=== PATIENT | female | born 1990 | race Caucasian/White ===

== ENCOUNTER 2020-03-14 16:42 | Emergency (ER) | payer OTHER, SELFPAY ==
--- NOTE | 2020-03-14 | XR_ITS ---
EXAMINATION: XR KNEE, LEFT CLINICAL INFORMATION: Injury. COMPARISON: None TECHNIQUE: Four views of the left knee. FINDINGS: No acute fracture or dislocation. No significant joint space narrowing or marginal osteophytes. No osseous erosion. No abnormal soft tissue calcification. Trace joint effusion. XR/XR knee LT 4V IMPRESSION: Trace joint effusion.
[2020-03-14 16:50] VITALS: BP 132/91; PULSE 81; RESP 18; TEMP 36.8; O2SAT 100; BMI 29.5
--- NOTE | 2020-03-14 17:14 | ED.LOWEXIN ---
HPI - Extremity Injury (Lower) General Chief Complaint: Extremity Injury, Lower Stated Complaint: Fall Time Seen by Provider: 03/14/20 16:49 Source: patient Mode of arrival: wheelchair History of Present Illness HPI Narrative: 30-year-old female with no significant past medical history presenting to Emergency Department knee pain. She states she was on a course and lost control and fell. The major the trauma was on her left leg. She felt lightheaded when she stood because of the pain to her knee. She felt her knee shift back and forth. She did hear an initial pop. She denies head injury, LOC. she denies chest wall, abdominal or back injury. No report of incontinence. Related Data Previous Rx's Medication Instructions Recorded ibuprofen 600 mg PO Q6H PRN 7 Days #28 tab 03/14/20 Allergies Allergy/AdvReac Type Severity Reaction Status Date / Time No Known Allergies Allergy Verified 03/14/20 16:53 Review of Systems Constitutional: Constitutional: Denies fever(s) and Denies headache(s) Eyes: Eyes: Reports no additional eye complaints ENT: Denies headache(s) Comments: no oral injury Cardiovascular: Cardiovascular: Denies chest pain, Denies syncope and Denies dyspnea Respiratory: Respiratory: Denies dyspnea Gastrointestinal: Gastrointestinal: Denies abdominal pain and Denies vomiting Genitourinary: Comments: no incontinence Musculoskeletal: Comments: left knee pain Neurologic: Denies syncope and Denies headache(s) Hematologic/Lymphatic: Hematologic/Lymphatic: Denies easy bleeding PMFSH Past Medical History Medical History No known health problems Social History Social History Smoked in Last 30 Days: No Use of substances other than those prescribed or required for medical reasons: No Advance Directives: No Advance Directives Information Provided: No Physical Exam Vital Signs: Vital Signs: Last Vital Signs Temp 98.2 F 03/14/20 16:50 Pulse 81 03/14/20 16:50 Resp 18 03/14/20 16:50 BP 132/91 H 03/14/20 16:50 Pulse Ox 100 03/14/20 16:50 Body Mass Index 29.5 Const: General: cooperative Orientation/consciousness: patient oriented x3 HENMT: Other: no oral injury no julien sign Head: Yes atraumatic Eyes: Pupils: Equal, round and reactive pupils present EOM: EOMs intact bilaterally Neck: Neck: Yes full ROM, Yes trachea midline and Yes supple Chest: Chest palpation & inspection: normal inspection of the chest, normal palpation of entire chest wall, no crepitus and no tenderness Resp: Effort & Inspection: normal respiratory effort Auscultation: clear to auscultation bilaterally Cardio: Rate: regular rate Rhythm: regular rhythm GI: Inspection: No distended Palpation (GI): Soft to palpation and nontender Back/Spine/Pelvis: Other: no midline tenderness of cervical, thoracic or lumbar spine Skin: Other: intact Neuro: General: patient oriented x3 and no focal motor deficits Cranial nerves: Yes Equal, round and reactive pupils present Extrem: Other: LLE_ + pedal pulse, full ROM of digits, ankle, limited ROM of the knee secondary to pain able to fully extend, no calf tenderness or swelling, pelvis stable, no obvious deformities, no lacerations or wounds, no erythema or warmth, compartments soft, neurovasuclarly intact Course Reevaluation(s) Reevaluation #1: Trace joint effusion on plain film most likely due to a ligamentous injury. WIll give ortho follow up, continue with knee immobilizer and crutches. Pt. feels comfortable with this plan. Time: 18:03 MDM - Extremity Injury (Lower) MDM Narrative Medical decision making narrative: 30-year-old female presenting to the emergency department after falling off her horse Vital stable, nontoxic appearing, hemodynamically stable Will plan for plain films of her knee to rule out bony injury. She does not have calf tenderness or swelling to suggest an underlying DVT. She does not have evidence of thoracic or abdominal injury. No midline tenderness to her spine to suggest underlying fracture. She has no red flags for a cord compression. She does not have evidence of a tendon rupture as she is able to passively range her knee although limited. No evidence of compartment syndrome. Upper limbs are atraumatic. She denies hitting her head or LOC, not on anticoagulant [place] Head CT guidelines patient does not warrant head imaging. She denies chance of , due for her menstrual now. Discharge Plan Discharge Clinical Impression: Knee sprain, Joint effusion of knee Patient Disposition: Home, Self-Care Instructions: Knee Sprain (ED), R.I.C.E. Treatment (ED) Additional Instructions: You were seen in the emergency department for knee pain after an injury. YOur xray did not show a broken bone. Please elevate your leg and place ice to help with swelling. Use knee immobilizer when walking and use crutches for weight bearing. Please contact the orthopedic office for further follow up. Return to the emergency department if your symptoms worsen, worsening pain, swelling, calf pain, weakness, numbness, tingling, difficulty walking, or any other concerning symptoms. You may take Tylenol Motrin as directed for pain if needed. Prescriptions: New ibuprofen 600 mg tablet 600 mg PO Q6H PRN (Reason: pain) 7 Days Qty: 28 RF: 0 Referrals: Luis F Benoit MD [Physician] - 1 week
[2020-03-14] MEDS: Ibuprofen 600 MG TABLET PO (17:26)
[2020-03-14] MEDS: oxyCODONE HCl Immed Release 5 MG TABLET PO (17:26)
[2020-03-14] MEDS: Acetaminophen 325 MG TABLET 650 MG PO (17:26)
[2020-03-14 18:00] VITALS: BP 136/92; PULSE 88; RESP 14; TEMP 36.8; O2SAT 100
== END 2020-03-14 19:19 | disposition home or self-care (01) ==
PROVIDERS: Emergency Provider Emergency Medicine
DX: S83.92XA Sprain of unspecified site of left knee, initial encounter (principal); W18.30XA Fall on same level, unspecified, initial encounter; M25.462 Effusion, left knee; Y93.89 Activity, other specified; Y92.019 Unspecified place in single-family (private) house as the place of occurrence of the external cause; Y99.9 Unspecified external cause status
CPT/HCPCS: 73564; 99283; 99284

== ENCOUNTER → 2020-03-20 10:55 | Outpatient (BNVA) | payer OTHER, SELFPAY | PROVIDERS: Visit Provider Orthopaedic Surgery | DX: Z76.89 Persons encountering health services in other specified circumstances (principal) ==

== ENCOUNTER 2020-03-31 13:08 | Outpatient (REF) | payer OTHER, SELFPAY ==
--- NOTE | 2020-03-31 13:11 | MR_ITS ---
EXAMINATION: MR KNEE WITHOUT CONTRAST, LEFT CLINICAL INFORMATION: Left knee effusion. Patient reports fall off horse 3 weeks prior. COMPARISON: X-ray left knee March 2020. TECHNIQUE: MRI of the knee without contrast was performed using routine sequences on a high-field scanner. FINDINGS: MENISCI: Medial Meniscus: Intact. Lateral Meniscus: Intact. LIGAMENTS: Cruciate: There is some discontinuity the proximal anterior cruciate ligament. The appearance is compatible with tear either incomplete versus complete. The may be some fibers still intact. Posterior cruciate ligament intact. Collateral: There is a small focal area of discontinuity at the femoral attachment of the medial collateral ligament compatible with a small incomplete partial tear. See coronal image 11 series 6. There is mild abnormal signal circumferentially about the proximal medial collateral ligament extending to the medial joint line. Distal to the joint line the ligament is intact. Collateral ligaments are intact. EXTENSOR MECHANISM: Intact. ARTICULAR CARTILAGE/BONE: Patellofemoral Compartment: Evaluation is slightly limited by motion artifact. No definite arthrosis. Medial Compartment: Subchondral marrow edema along the posterior aspect of the tibial plateau, compatible with bone contusion. Lateral Compartment: Subchondral marrow edema compatible with bone contusion along the sulcus terminalis along the femoral condyle as well as along the posterior aspect of the lateral plateau. Overlying articular cartilage appears intact. JOINT FLUID AND BURSAE: There is a moderate joint effusion. MR/MR knee LT wo con IMPRESSION: Tear of the anterior cruciate ligament, complete versus incomplete. Given the additional pattern of bone contusions the findings are highly suspicious for complete tear of the anterior cruciate ligament. Partial tear of the proximal medial collateral ligament.
== END 2020-03-31 13:09 | disposition home or self-care (01) ==
LOC: HO.MRI 13:08
PROVIDERS: Visit Provider Orthopaedic Surgery
DX: M25.462 Effusion, left knee (principal)
CPT/HCPCS: 73721

== ENCOUNTER → 2020-04-03 09:12 | Outpatient (BNVA) | payer OTHER, SELFPAY | PROVIDERS: Visit Provider Orthopaedic Surgery ==

== ENCOUNTER 2020-04-22 08:00 | Outpatient (RCR) | payer OTHER, SELFPAY ==
--- NOTE | 2020-04-22 10:02 | MHC.PT.EP ---
[facility] [place] Office [place] Office [place] Office [address] Karolina Sanchez [address] [phone] F: [phone] F: [phone] F: [phone] F: [phone] Physical Therapy Plan of Care Date of Evaluation: 04/22/20 Date of Surgery: Diagnosis: EFFUSION L KNEE Assessment: Pt IS 30 YO F REFERRED TO PT FROM [facility] (DR MOLINA) WITH L KNEE JT EFFUSION. Pt HAD A FALL OFF A HORSE 03/14/20 WITH MRI SHOWING INCOMPLETE VS COMPLETE TEAR L ACL AND PARTIAL TEAR MCL. TO SEE DR GONSALVES NEXT WEEK TO TALK ABOUT SURGERY. DR MOLINA WOULD LIKE TO SEE AND INCREASE IN L KNEE ROM AND STRENGTH PRIOR TO SURGERY. Pt PRESENTS WITH DECREASED L KNEE ROM, DECREASED L LE STRENGTH, SLIGHT SWELLING (REPORTS IMPROVED SINCE INJURY) WITH PAIN. SHOULD BENEFIT FROM PT TO HELP INCREASE L KNEE ROM AND L LE STRENGTH PRIOR TO SURGERY Frequency and Duration: The patient will be seen 1-2X/WK UNTILSURGERY(TO SEE DR GONSALVES ONTUESDAY)FOR NOW WILL SAY [id number]/WKX4WK Short Term Goals: 1. INCREASED AWARENESS KNEE CARE AND PO ACL PROTOCOL 2. INCREASED L KNEE ROM 0-130 3. ABLE TO PERF SLR ON L Detention Goals: 1. I HEP 2. INCREASED STRENGTH L LE 1/2 MM GRADE 3. DECREASED L KNEE PAIN AT LEAST 50% WITH ADLS 4. DECREASED L KNEE SWELLING 14-1/2 INCH WITH Pt REPORT OF LESS SWELLING WITH ADLS Treatment Plan: Modalities to reduce pain, spasms and effusion. Manual therapy to restore motion and function. Therapeutic exercise to improve strength and flexibility. Neuromuscular re-education for posture and balance. Therapeutic activities to return to functional activities of daily living. Electronically signed by: THO CHAUHAN PT Please sign and return to therapist. Thank you for your referral.
--- NOTE | 2020-06-03 07:46 | MHC.PT.DC ---
[facility] [place] Office [place] Office [place] Office [address] Karolina Sanchez [address] [phone] F: [phone] F: [phone] F: [phone] F: [phone] Physical Therapy Discharge Report Diagnosis: EFFUSION L KNEE Date of Surgery: Date of Evaluation: 04/22/20 Date of Discharge: 06/03/20 Treatments to Date: 1 Cancellations to Date: No Shows to Date: Discharge Status: Independent with HEP Discharge Summary: Pt SEEN FOR [facility] ONLY FOR PRE-OP ED/EX. Pt UNDERWENT ACL RECONCTRUCTION ON 05/28/20 AND IS NOW CONTINUING POST OP PT IN THE LITTLE NECK OFFICE. AT [facility] [place]:Pt IS 30 YO F REFERRED TO PT FROM [facility]TH[facility] (DR MOLINA) WITH L KNEE JT EFFUSION. Pt HAD A FALL OFF A HORSE 03/14/20 WITH MRI SHOWING INCOMPLETE VS COMPLETE TEAR L ACL AND PARTIAL TEAR MCL. TO SEE DR GONSALVSE NEXT WEEK TO TALK ABOUT SURGERY. DR MOLINA WOULD LIKE TO SEE AND INCREASE IN L KNEE ROM AND STRENGTH PRIOR TO SURGERY. Pt PRESENTS WITH DECREASED L KNEE ROM, DECREASED L LE STRENGTH, SLIGHT SWELLING (REPORTS IMPROVED SINCE INJURY) WITH PAIN. SHOULD BENEFIT FROM PT TO HELP INCREASE L KNEE ROM AND L LE STRENGTH PRIOR TO SURGERY Electronically signed by: THO CHAUHAN PT Please sign and return to therapist. Thank you for your referral.
== END 2020-06-03 07:48 | disposition other institution (70) ==
LOC: HO.PTWFD 08:00
PROVIDERS: Visit Provider Orthopaedic Surgery
DX: M25.462 Effusion, left knee (principal)
CPT/HCPCS: 97110; 97161

== ENCOUNTER → 2020-04-28 08:30 | Outpatient (BNVA) | payer OTHER, SELFPAY | PROVIDERS: Visit Provider Orthopaedic Surgery ==

== ENCOUNTER 2020-05-28 06:09 | Day surgery (SDC) | payer OTHER, SELFPAY ==
[2020-05-21 11:59] VITALS: BMI 29.5
--- NOTE | 2020-05-26 15:31 | HO.ANESPROP2 ---
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 Mother No problems noted. Social History Social History Are you a primary multi care technician to a significant other at home: No Do you presently have visiting nurse or other home services: No Smoking Status: Unknown if ever smoked Advance Directives: No Advance Directives Information Provided: No Advance Directives on File: No Recently lost weight without trying: No Meds Allergies Allergy/AdvReac Type Severity Reaction Status Date / Time No Known Allergies Allergy Verified 05/28/20 06:29 Home Medications Medication Instructions Recorded Confirmed Last Taken Type sertraline 50 mg tablet 50 mg PO DAILY 03/20/20 05/21/20 Unknown History Exam Exam Date and Time: May 26, 2020 1531 Height,Weight and Vital Signs: Height 5 ft 9 in Weight 90.718 kg Assessment and Plan Assessment Anesthesia Assessment: Chart Reviewed Documented by User: Jerry Sandoval MD 05/28/20 08:03 PMFSH Past Medical History Medical History Depression No known health problems Family History Family History Father No problems noted. Mother No problems noted. Social History Social History Are you a primary multi care technician to a significant other at home: No Do you presently have visiting nurse or other home services: No Smoking Status: Unknown if ever smoked Advance Directives: No Advance Directives Information Provided: No Advance Directives on File: No Recently lost weight without trying: No Meds Allergies Allergy/AdvReac Type Severity Reaction Status Date / Time No Known Allergies Allergy Verified 05/28/20 06:29 Home Medications Medication Instructions Recorded Confirmed Last Taken Type sertraline 50 mg tablet 50 mg PO DAILY 03/20/20 05/21/20 Unknown History Exam Airway Mallampati Class: I TM Dist: >3cm Loose/Missing/Broken Teeth: No Heart: RRR Lungs: NL Other: AO Assessment and Plan Assessment Anesthesia Assessment: Anesthesia Plan Discussed and Chart Reviewed Final Anesthetic Review NPO: Yes ASA Class: I Final Preanesthetic Review: No Changes in Pt Med Stat, Meds/Allgs Chart Reviewed, Consent Obtained/Reviewed and Anes Risks/Benef Reviewed Patient Risk: Low Procedure Risk: Low Anesthetic Plan Anesthetic Plan: GA Disposition: Standard PACU
[2020-05-28] VITALS (17 sets, daily range): BP systolic 123–162; BP diastolic 75–95; PULSE 81–98; RESP 16; TEMP 36.3–36.6; O2SAT 90–98
[2020-05-28 06:36] LABS: UPreg QC Valid YES; Urine Pregnancy NEGATIVE (NEGATIVE)
[2020-05-28] MEDS: Lactated Ringers 1,000 ML 100 ML IVCONT (06:46)
--- NOTE | 2020-05-28 08:53 | MHC.SHP ---
Pre-Procedural Eval Section A The patient is an INPATIENT: No Changes since office visit: No Cold of Flu in the past 2 weeks, No New Medical Problems, No Changes in Medication and No Patient answered all questions The History & Physical has been completed within 30 days and I have reviewed it.: Yes Section B Chief Complaint: derangements of left knee Allergies: Allergies Allergy/AdvReac Type Severity Reaction Status Date / Time No Known Allergies Allergy Verified 05/28/20 06:29 Plan I have reviewed the history and physical and performed a pertinent physical examination on my patient. No changes have occurred unless specified.
[2020-05-28] MEDS: HYDROmorphone HCl 0.5 MG/0.5 ML SYRINGE 0.25 MG IVPUSH ×3 (09:19→09:52)
[2020-05-28] MEDS: oxyCODONE HCl Immed Release 5 MG TABLET PO (09:26)
[2020-05-28] MEDS: ondansetron HCL 4 MG/2 ML VIAL IVPUSH (09:28)
--- NOTE | 2020-05-28 10:04 | W.PM.OPN ---
Operative Note Operative Note Date of Service: 05/28/20 Narrative: OPERATIVE NOTE-ACL RECONSTRUCTION SURGEON: Dr Paddy Yagn) Instrum COREMAKER EXPERIMENTAL: Linda EASTMAN , Laura EASTMAN PREOP DIAGNOSIS: ACL deficient left knee POSTOP DIAGNOSIS: Same OPERATIVE PROCEDURE: ACL reconstruction left knee with bone patellar bone allograft CLINICAL NOTE: This lady injured her knee in a twisting fall. She subsequently had instability. Her ongoing investigations confirmed an ACL tear. After explaining the risks benefits and alternatives and answering all her questions it was mutually agreed upon to carry following procedures. MOTION: Full range of motion STABILITY: Positive Travis's and pivot shift. Collateral ligaments intact OPERATIVE DETAILS PREPARATION: GA, STANDARD TECHNIQUE, tourniquet to 300 mm of mercury for 42 minutes SURGICAL TIME-OUT: Patient is identified. Procedure confirmed. Site confirmed. Medical and allergy history is reviewed. Preoperative antibiotics were given. Standard DVT prophylaxis in place. All other items discussed and agreed upon. INCISIONS: Superolateral, inferolateral, inferomedial stab incisions. Proximal medial metaphyseal incision for tibial tunnel and graft insertion SYNOVIUM: Clear SYNOVIAL fluid: Clear MEDIAL COMPARTMENT: The medial meniscus tibial and femoral articular surfaces were all stable and intact LATERAL COMPARTMENT: The lateral meniscus tibial and femoral articular surfaces and the popliteus tendon were stable and intact ANTERIOR COMPARTMENT: Medial and lateral gutters clear suprapatellar pouch clear patella and femoral sulcus articular surfaces intact INTERCONDYLAR NOTCH: The ACL was chronically torn back to the PCL. Using the ArthroCare as well as the Ultra cut shaver the remainder of the ACL was removed. The PCL was identified. The area of the insertion in the tibia was clear. The periosteum cleared in the under surface as and the [id number] position was identified. Using the Arthrex guide in standard fashion the tibial tunnel was established to a stab incision on the proximal medial aspect of the tibia. The guidewire was inserted and then the tunnel was established. He was rasped smooth. All bony fragments removed. Simultaneous to the tunnel being made the graft was prepared. It was 100 mm bone patellar bone allograft with 30 mm bone blocks. Both ends had 2 holes drilled and subsequent to that Maxon sutures placed in 1 in for the femoral side Tycron for the other side. It was then protected. In standard fashion using the [id number] guide the Beath needle was drilled out through the anterolateral cortex. The 10 mm headed Reamer was placed over the guidewire. The femoral tunnel was drilled to a footprint. It was checked had a good posterior wall. It was then reamed out to a 35 mm depth. The notch was made in standard fashion. The bony fragments were then removed. The graft was brought up out to the table. The Maxon sutures were placed through the eye of the Beath needle. The graft was then passed through the tibial tunnel across the PCL into the femoral tunnel without incident. The knee was cycled a number of times. Through the in for medial portal the night all wire was placed into the notch. The knee was flexed. An 8 x 25 mm BioScrew was inserted. It had excellent purchase. The knee was then cycled a number of times. With the knee now flexed at 15 degrees and the graft it tension the 8 x 25 mm BioScrew was inserted over guidewire into the tibial tunnel with excellent purchase. Examination of the needs this point demonstrated full range of motion negative Travis and pivot shift. And therefore proceeded to closure. All scope instruments had been withdrawn. All incisions approximated using interrupted Dexon. Skin approximated use in Dermabond Steri-Strips and a sterile dressing. The knee was then placed in a brace. The patient's anesthesia was then reversed. They were transferred supine to the room bed then taken to cover room in good condition. Intraoperatively there was minimal blood loss with no complications.
== END 2020-05-28 13:06 | disposition home or self-care (01) ==
PROVIDERS: Nurse Practitioner; Visit Provider Orthopaedic Surgery
PROC: (CPT 27428; principal; 2020-05-28 07:30)
DX: S83.512A Sprain of anterior cruciate ligament of left knee, initial encounter (principal); W19.XXXA Unspecified fall, initial encounter; X50.1XXA Overexertion from prolonged static or awkward postures, initial encounter; Y93.9 Activity, unspecified; Y92.9 Unspecified place or not applicable; Y99.8 Other external cause status; F32.9 Major depressive disorder, single episode, unspecified; Z79.899 Other long term (current) drug therapy
CPT/HCPCS: 29888; 81025; C1713; C1763; C1769; J0131; J0171; J0690; J1100; J1170; J2250; J2405

== ENCOUNTER → 2020-06-09 09:34 | Outpatient (BNVA) | payer OTHER, SELFPAY | PROVIDERS: Visit Provider Physician Assistant | DX: Z98.890 Other specified postprocedural states (principal) | CPT/HCPCS: 99212 ==

== ENCOUNTER 2020-06-15 15:00 | Outpatient (RCR) | payer OTHER, SELFPAY ==
--- NOTE | 2020-06-02 14:15 | MHC.PT.EP ---
[facility] [place] Office [place] Office [place] Office [address] Karolina Sanchez 140 [facility] [phone] F: [phone] F: [phone] F: [phone] F: [phone] Physical Therapy Plan of Care Date of Evaluation: 06/02/20 Date of Surgery: 05/28/20 Diagnosis: Left gawm-[id number] allograft ACL reconstruction Assessment: The Pt is a 30 y/o female presenting to [facility] s/p [id number] allograft ACL reconstruction by Dr. Lubin on 05/28/20. She is 5 days post-op today. Assessment reveals impaired range of motion, inflammation, decreased strength, impaired weight bearing strategies, impaired gait, impaired knee joint proprioception, decreased quad control, impaired muscle length, and patella hypomobility. Pt will require skilled PT services 1x/week for 20 weeks in order to reduce impairments, improve limitations, and restore function. Lois's goal is to return to hiking, horseback riding, and swimming. Frequency and Duration: The patient will be seen 1x/week for 20 weeks Short Term Goals: -In 2 weeks, Pt to demonstrate 0 degrees knee extension passively. -In 3 weeks, Pt to demonstrate at least 105 degrees knee flexion ROM (per protocol). -In 6 weeks, Pt to demonstrate full rastafari of right knee ROM. -In 8 weeks, Pt to report <2/10 pain w/ closed kinetic chain exercises and activities. Prison Goals: -In 14 weeks, right quad strength to measure at least 4/5 and hamstring strength 4+/5. -In 16 weeks, Pt to demonstrate the ability to perform a light jog x 10-15 minutes on TM at comfortable speed, no reports of pain or instability. -In 20 weeks, Pt to demonstrate I w/ HEP and improve LEFI by at least 30 points. Treatment Plan: Plan is to either follow the ACL PTG reconstruction protocol or ACL allograft protocol, waiting for response from [facility], sent fax on 06/02/20. Modalities to reduce pain, spasms and effusion. Manual therapy to restore motion and function. Therapeutic exercise to improve strength and flexibility. Neuromuscular re-education for posture and balance, may use NMES for muscle re-education if needed. Therapeutic activities to return to functional activities of daily living. Electronically signed by: Lata Delcid PT, DPT Please sign and return to therapist. Thank you for your referral.
== END 2020-11-10 14:31 | disposition home or self-care (01) ==
LOC: HO.PT 15:00
PROVIDERS: Visit Provider Orthopaedic Surgery
DX: M23.8X2 Other internal derangements of left knee (principal)
CPT/HCPCS: 97110; 97112; 97161

== ENCOUNTER → 2020-07-02 14:56 | Outpatient (BNVA) | payer OTHER, SELFPAY | PROVIDERS: Visit Provider Physician Assistant | DX: Z98.890 Other specified postprocedural states (principal) | CPT/HCPCS: 99212 ==

== ENCOUNTER → 2020-07-07 10:35 | Outpatient (BNVA) | payer OTHER, SELFPAY | PROVIDERS: Visit Provider Orthopaedic Surgery | DX: Z98.890 Other specified postprocedural states (principal) | CPT/HCPCS: 99212 ==

== ENCOUNTER → 2020-09-22 08:22 | Outpatient (BNVA) | payer OTHER, SELFPAY | PROVIDERS: Visit Provider Orthopaedic Surgery | DX: Z98.890 Other specified postprocedural states (principal) | CPT/HCPCS: 99212 ==